=== PATIENT | female | born 1990 | race African-American/Black ===

== ENCOUNTER 2022-12-03 10:05 | Emergency (ER) | payer OTHER ==
[~2022-12-03] VITALS: Ht 160 cm; Wt 75.0 kg
[2022-12-03 10:58] LABS: Basophils # (auto) 0 10 ^3/uL (0-0.2); Basophils % (auto) 0.2 % (0.0-2.0); Eosinophils # (auto) 0 10 ^3/uL (0-0.8); Eosinophils % (auto) 0.4 % (0.0-7.0); Hematocrit 41.1 % (36.0-46.0); Hemoglobin 13.3 g/dL (12.2-16.2); Lymphocytes # (auto) 0.5 10 ^3/uL (0.4-5.4); Lymphocytes % (auto) 5.1 % (10.0-50.0); Mean Corpuscular Hemoglobin 30.3 pg (28.0-32.0); Mean Corpuscular Hgb Conc. 32.4 g/dL (32.0-36.0); Mean Corpuscular Volume 93.4 fL (80.0-100.0); Monocytes # (auto) 0.8 10 ^3/uL (0-1.3); Monocytes % (auto) 8.3 % (0.0-12.0); Neutrophils # (auto) 8.4 10 ^3/uL (1.6-8.6); Nucleated Red Blood Cells % 0.2 %; Red Blood Cells 4.41 10^6/uL (4.0-5.20); Red Cell Distribution Width 13.6 % (11.8-14.3); White Blood Cell 9.8 10^3/uL (4.4-10.8)
[2022-12-03 11:17] LABS: Calcium 9.1 mg/dL (8.5-10.1); Potassium 4.4 mmol/L (3.5-5.1)
[2022-12-03 11:23] LABS: Albumin 3.5 g/dL (3.4-5.0); Bilirubin, Total 0.3 mg/dL (0.2-1.0); Total Protein 7.4 g/dL (6.4-8.2)
[2022-12-03 12:13] LABS: Urine Bacteria FEW /hpf (None Seen); Urine Blood Negative /uL (Negative); Urine Mucus FEW (None Seen); Urine Specific Gravity 1.031 (1.001-1.035); Urine WBC 8 /hpf (0 - 5)
[2022-12-03] MEDS ORDERED: ONDANSETRON ODT 4 MG TAB PO ONE (12:45)
[2022-12-03] MEDS ORDERED: NITROFURANTOIN 100 mg CAP PO ONE (12:45)
[2022-12-03] MEDS ORDERED: NITR-87 PO (13:11)
[2022-12-03] MEDS ORDERED: ONDA-144 SL (13:11)
[2022-12-03 14:00] VITALS: BP 132/91
== END 2022-12-03 14:07 | disposition home or self-care (01) ==
LOC: ER 10:05
DX: O41.1220 Chorioamnionitis, second trimester, not applicable or unspecified (principal); N39.0 Urinary tract infection, site not specified; R11.10 Vomiting, unspecified; O26.892 Other specified pregnancy related conditions, second trimester; R10.2 Pelvic and perineal pain; I10 Essential (primary) hypertension; Z3A.20 20 weeks gestation of pregnancy
CPT/HCPCS: 36415; 76805; 80053; 81001; 84702; 85025; 99284; Q0162

== ENCOUNTER 2023-04-08 10:34 | Inpatient (IN) | payer OTHER ==
[~2023-04-08] VITALS: Ht 160 cm; Wt 87.1 kg
[~2023-04-08 10:34] MED LIST: NITR-87 PO; ONDA-144 SL
[2023-04-08] MEDS ORDERED: PHISODERM TOP SOLN 240ML BTL TOP PRN (14:15)
[2023-04-08] MEDS ORDERED: LIDOCAINE 2%HCL (LOCAL ANESTH.) INJ 20ML MDV IJ PRN (14:15)
[2023-04-08] MEDS ORDERED: LACT. RINGERS/OXYTOCIN 20UNITS 500 ML IV ONE ×3 (14:15→23:15)
[2023-04-08] MEDS ORDERED: BUTORPHANOL TARTRATE 2 MG/1 ML VIAL IV PRN ×2 (14:15)
[2023-04-08] MEDS ORDERED: PROMETHAZINE HCL 25 MG/ML 1ML IV PRN (14:15)
[2023-04-08] MEDS ORDERED: PENICILLIN G POT 5MIL/D5 50ML 50 ML IV ONE (14:15)
[2023-04-08 14:53] LABS: Basophils # (auto) 0 10 ^3/uL (0-0.2); Basophils % (auto) 0.2 % (0.0-2.0); Eosinophils # (auto) 0 10 ^3/uL (0-0.8); Eosinophils % (auto) 0.5 % (0.0-7.0); Hemoglobin 13.6 g/dL (12.2-16.2); Lymphocytes # (auto) 1.2 10 ^3/uL (0.4-5.4); Lymphocytes % (auto) 15.7 % (10.0-50.0); Mean Corpuscular Hemoglobin 30.3 pg (28.0-32.0); Mean Corpuscular Hgb Conc. 33.2 g/dL (32.0-36.0); Mean Corpuscular Volume 91.3 fL (80.0-100.0); Monocytes # (auto) 0.6 10 ^3/uL (0-1.3); Monocytes % (auto) 7.5 % (0.0-12.0); Neutrophils # (auto) 5.6 10 ^3/uL (1.6-8.6); Neutrophils % (auto) 76.1 % (37.0-80.0); Nucleated Red Blood Cells % 0.1 %; Red Blood Cells 4.49 10^6/uL (4.0-5.20); Red Cell Distribution Width 14.3 % (11.8-14.3); White Blood Cell 7.4 10^3/uL (4.4-10.8)
[2023-04-08 15:08] LABS: Urine Bacteria FEW /hpf (None Seen); Urine Blood Negative /uL (Negative); Urine Mucus FEW (None Seen); Urine WBC 1 /hpf (0 - 5)
[2023-04-08 15:13] LABS: Albumin 3.1 g/dL (3.4-5.0); Potassium 3.5 mmol/L (3.5-5.1)
[2023-04-08 15:15] LABS: BUN/Creatinine Ratio 9.9 (10.0-20.0); Bilirubin, Total 0.5 mg/dL (0.2-1.0); Total Protein 7.7 g/dL (6.4-8.2)
[2023-04-08 15:22] LABS: Alcohol, Urine < 3.0 mg/dL (0-10); Amphetamine Screen, Urine NEGATIVE (NEGATIVE); Barbiturate Scree,Urine NEGATIVE (NEGATIVE); Benzodiazephine Screen, Urine NEGATIVE (NEGATIVE); Cannabinoid Screen, Urine NEGATIVE (NEGATIVE); Cocaine Screen, Urine NEGATIVE (NEGATIVE); Opiate Scree,Urine NEGATIVE (NEGATIVE); Phencyclidine Screen, Urine NEGATIVE (NEGATIVE)
[2023-04-08 15:28] LABS: INR 0.9 (0.9-1.15); Partial Thromboplastin Time 28.6 sec (24.6-33.4)
[2023-04-08] MEDS: LACTATED RINGER'S 1,000 ML IV SCH ×2 (15:58→15:59)
[2023-04-08] MEDS ORDERED: fentaNYL CITRATE 100 MCG/2 ML VL IV ONE (16:15)
[2023-04-08] MEDS ORDERED: NALOXONE HCL 0.4 MG/ML VIAL IV ONE (16:15)
[2023-04-08] MEDS ORDERED: ePHEDrine SULFATE 50 MG/ML AMP IV ONE (16:15)
[2023-04-08] MEDS ORDERED: ROPIVACAINE HCL 200 ML EPI SCH (16:15)
[2023-04-08] MEDS ORDERED: LIDOCAINE HCL 2 %PF INJ 10ML AMP IJ ONE (16:15)
[2023-04-08] MEDS: ceFAZolin 1GM/50ML 50 ML IV SCH (17:14)
[2023-04-08] MEDS ORDERED: MAGNESIUM SULFATE 100 ML IV ONE (17:15)
[2023-04-08] MEDS ORDERED: LORazepam 2MG/ML-1ML VIAL IV ONE (17:15)
[2023-04-08] MEDS ORDERED: MAGNESIUM SULFATE 40MG/ML 1,000 ML IV SCH (17:15)
[2023-04-08] MEDS ORDERED: MAGNESIUM SULFATE 40MG/ML 0 ML IV ONE (17:30)
[2023-04-08] MEDS ORDERED: MAGNESIUM SULFATE 0 ML IV ONE (17:30)
[2023-04-08 17:37] LABS: Protein, Urine 23.9 mg/dL (0.0-11.9)
[2023-04-08] MEDS ORDERED: PENICILLIN G POTASSIUM 2,500,000 UNITS in D5W 5% 50 ML IV SCH (18:15)
[2023-04-08] MEDS: WITCH HAZEL-GLYCERIN PAD TOP PRN (18:18)
[2023-04-08] MEDS: DERMOPLAST 60ML BOTTLE TOP PRN (18:18)
[2023-04-08] MEDS ORDERED: ONDANSETRON ODT 4 MG TAB PO PRN (19:15)
[2023-04-08] MEDS: IBUPROFEN 600 MG TAB PO PRN (20:36)
[2023-04-08 23:01] VITALS: BP 113/56
[2023-04-09] VITALS (7 sets, daily range): BP systolic 96–131; BP diastolic 51–90
[2023-04-09] MEDS: ceFAZolin 1GM/50ML 50 ML IV SCH ×3 (01:25→21:58)
[2023-04-09] MEDS: IBUPROFEN 600 MG TAB PO PRN ×3 (04:05→13:59)
[2023-04-09] MEDS: ACETAMINOPHEN 325 MG TAB PO PRN ×2 (08:59→21:59)
[2023-04-09] MEDS: WITCH HAZEL-GLYCERIN PAD TOP PRN (19:45)
[2023-04-10 01:06] LABS: Rubella Antibodies, IgG 4.78 index (Immune >0.99)
[2023-04-10] MEDS: IBUPROFEN 600 MG TAB PO PRN (01:59)
[2023-04-10 03:00] VITALS: BP 129/83
[2023-04-10] MEDS: ceFAZolin 1GM/50ML 50 ML IV SCH (05:45)
[2023-04-10] MEDS: ACETAMINOPHEN 325 MG TAB PO PRN (05:45)
[2023-04-10 06:06] LABS: RPR Non Reactive (Non Reactive)
[2023-04-10 07:00] VITALS: BP 128/86
[2023-04-10] MEDS: WITCH HAZEL-GLYCERIN PAD TOP PRN (10:36)
[2023-04-10] MEDS: DERMOPLAST 60ML BOTTLE TOP PRN (10:36)
== END 2023-04-10 10:45 | disposition home or self-care (01) | DRG 807 ==
LOC: LDRP 10:34 → OBSVTOIN 14:02 → LDRP 20:27
PROVIDERS: ADMIT Obstetrics & Gynecology; ATTEND Obstetrics & Gynecology
PROC: 10E0XZZ Delivery of Products of Conception, External Approach (ICD-10-PCS; principal; 2023-04-08)
PROC: 0KQM0ZZ Repair Perineum Muscle, Open Approach (ICD-10-PCS; 2023-04-08)
DX: O16.4 Unspecified maternal hypertension, complicating childbirth (principal); Z37.0 Single live birth; O70.1 Second degree perineal laceration during delivery; Z3A.38 38 weeks gestation of pregnancy; O99.344 Other mental disorders complicating childbirth; F53.0 Postpartum depression; F41.9 Anxiety disorder, unspecified; F32.A Depression, unspecified
CPT/HCPCS: 36415; 59025; 59409; 76805; 76818; 80053; 80307; 81001; 82570; 83735; 84156; 84550; 85025; 85610; 85730; 86592; 86703; 86762; 86850; 86900; 86901; 87340; 94760; 96360; 96361; 96365; 96366; G0378; J0690; J2540; J2590; J7060